=== PATIENT | male | born 1995 | race Caucasian/White ===

== ENCOUNTER 2018-03-09 07:23 | Emergency (ER) | payer MEDICAID ==
[2018-03-09] MEDS ORDERED: HALOPERIDOL LACT 5 MG/ML INJ IVP ONE (07:50)
[2018-03-09] MEDS ORDERED: ONDANSETRON 4 MG/2 ML VIAL IVP ONE (07:50)
--- NOTE | 2018-03-10 07:56 | EDPHY ---
H & P Stated Complaint: abd pain and vomiting Time Seen by Provider: 03/09/18 08:00 HPI/ROS: HISTORY OF PRESENT ILLNESS: The patient is a 22-year-old man who comes to the emergency depart with his mom complaining of nausea vomiting abdominal pain. He states that he has had the symptoms for 2 months. His mom states that they they began after he increased his cannabis use daily. States that he was at [facility] 1 month ago and had a negative workup. He has vomited 4 times this morning. No diarrhea. No fever. Also has a history of appendectomy. States that his symptoms are improving now but he feels dehydrated. REVIEW OF SYSTEMS: Constitutional: denies: chills, fever, recent illness, recent injury EENTM: denies: blurred vision, double vision, nose congestion Respiratory: denies: cough, shortness of breath Cardiac: denies: chest pain, irregular heart rate, lightheadedness, palpitations Gastrointestinal/Abdominal see HPI Genitourinary: denies: dysuria, frequency, hematuria, pain Musculoskeletal: denies: joint pain, muscle pain Skin: denies: lesions, rash, jaundice, bruising Neurological: denies: headache, numbness, paresthesia, tingling, dizziness, weakness Hematologic/Lymphatic: denies: blood clots, easy bleeding, easy bruising Immunologic/allergic: denies: HIV/AIDS, transplant EXAM: GENERAL: Well-appearing, well-nourished and in no acute distress. HEAD: Atraumatic, normocephalic. EYES: Pupils equal round and reactive to light, extraocular movements intact, sclera anicteric, conjunctiva are normal. ENT: TMs normal, nares patent, oropharynx clear without exudates. Moist mucous membranes. NECK: Normal range of motion, supple without lymphadenopathy or JVD. LUNGS: Breath sounds clear to auscultation bilaterally and equal. No wheezes rales or rhonchi. HEART: Regular rate and rhythm without murmurs, rubs or gallops. ABDOMEN: Soft, nontender, normoactive bowel sounds. No guarding, no rebound. No masses appreciated. BACK: No CVA tenderness, no spinal tenderness, step-offs or deformities EXTREMITIES: Normal range of motion, no pitting or edema. No clubbing or cyanosis. NEUROLOGICAL: Cranial nerves II through XII grossly intact. Normal speech, normal gait. 5/5 strength, normal movement in all extremities, normal sensation PSYCH: Normal mood, normal affect. SKIN: Warm, dry, normal turgor, no visible rashes or lesions. Source: Patient, Family Exam Limitations: No limitations - Medical/Surgical History Hx Asthma: No Hx Chronic Respiratory Disease: No Hx Diabetes: No Hx Cardiac Disease: No Hx Renal Disease: No Hx Cirrhosis: No Hx Alcoholism: No Hx HIV/AIDS: No Hx Splenectomy or Spleen Trauma: No Other PMH: Med hx-none. Surg-appy - Family History Significant Family History: No pertinent family hx - Social History Smoking Status: Never smoked Alcohol Use: Sober Drug Use: None Allergies/Adverse Reactions: No Known Allergies Allergy (Verified 08/27/15 13:32) Home Medications: Medication Instructions Recorded Azithromycin [Zithromax 250 mg 250 mg PO DAILY #6 tab 12/28/15 tab(RX)] Medical Decision Making ED Course/Re-evaluation: MDM: Patient's symptoms improved with fluids, Zofran and Haldol. His abdominal exam remains benign. Re-evaluated him multiple times during his stay. He is rehydrated. He is eager to go. I will give her prescription for Zofran and encouraged him to decrease his cannabis use. Lab work is reassuring. Discussed indications for returning. Differential Diagnosis: Partial list of the Differential diagnosis considered include but were not limited to; gastritis, cannabis hyperemesis, and although unlikely based on the history and physical exam, I also considered biliary disease, obstruction, ischemia, torsion, kidney stone, urinary tract infection. I discussed these differential diagnoses and the plan with the [patient] as well as the usual and expected course. The [patient understands] that the diagnosis is provisional and that in medicine we are not always correct and that further workup is often warranted. Usual and customary warnings were given. All of the [patient's] questions were answered. The [patient was] instructed to return to the emergency department should the symptoms at all worsen or return, otherwise to followup with the physician as we discussed. Departure - Departure Disposition: Home, Routine, Self-Care Clinical Impression: Dehydration, Cannabis abuse Nausea & vomiting Qualifiers: Vomiting type: unspecified Vomiting Intractability: non-intractable Qualified Code(s): R11.2 - Nausea with vomiting, unspecified Abdominal pain Qualifiers: Abdominal location: generalized Qualified Code(s): R10.84 - Generalized abdominal pain Condition: Fair Instructions: Acute Nausea and Vomiting (ED), Cannabis Abuse (ED) Referrals: NONE *PRIMARY CARE P,. [Primary Care Provider] - As per Instructions
== END 2018-03-09 09:02 | disposition home or self-care (01) ==
LOC: CED 07:23
DX: R11.2 Nausea with vomiting, unspecified (principal); E86.0 Dehydration; R10.84 Generalized abdominal pain; F12.10 Cannabis abuse, uncomplicated
CPT/HCPCS: 80053-PO; J1200; J1630; J2405

== ENCOUNTER 2018-03-09 20:15 | Emergency (ER) | payer MEDICAID ==
[2018-03-09 20:29] VITALS: BP 117/71
[2018-03-09] MEDS ORDERED: DIAZEPAM 5 MG TAB PO ONE (20:30)
--- NOTE | 2018-03-09 20:35 | EDPHY ---
H & P Time Seen by Provider: 03/09/18 20:17 HPI/ROS: This patient came in earlier today with vomiting at 7:30 a.m.. He also had some abdominal cramping. He was treated with IV Haldol and Zofran and reports that within a few minutes of having that Haldol he felt very anxious. He was treated with Benadryl but reported ongoing anxiety at home despite warm basilar naps. His brother brought him in for a recheck this evening with complaints of ongoing anxiety. Again he denies any anxiety prior to the Haldol dose 2.5 mg IV. ROS: Constitutional: No recent fevers HEENT: No recent URI symptoms or other complaints Neuro: No headache. No focal numbness tingling weakness Psychiatric: He denies depression or generalized anxiety prior to this morning. Pulmonary: No cough shortness of breath Cardiovascular: No lightheadedness or chest pain GI: No abdominal pain. Currently no nausea. : No symptoms Integumentary: No rash or pallor 10 point ROS is otherwise negative Past Medical/Surgical History: This morning as per HPI. Otherwise healthy Social History: Patient uses marijuana. He reports that this is daily use and that he started using a concentrator approximately a month or 2 ago. He denies any other drug use. He rarely uses alcohol. None recently. Smoking Status: Never smoked Physical Exam: General Appearance: Alert, no distress. Eyes: Pupils equal and round no pallor or injection. ENT, Mouth: Mucous membranes moist. Respiratory: There are no retractions, lungs are clear to auscultation. Cardiovascular: Regular rate and rhythm. Gastrointestinal: Hyperactive bowel sounds, soft, nontender Neurological: GCS 15 with no focal deficits. Skin: Warm and dry, no rashes. Musculoskeletal: Neck is supple nontender. Extremities are symmetrical, full range of motion. Psychiatric: Mood and affect currently seem normal with no pressured speech. No psychotic symptoms. Logical thought content. He reports anxiety but does not have agitated motor function. No suicidal ideation or homicidal ideation. DIFFERENTIAL DIAGNOSIS: After history and physical exam differential diagnosis was considered for neuroleptic related anxiety most likely, generalized anxiety , cannabinoid related anxiety, cannabinoid related hyperemesis syndrome. Constitutional: Initial Vital Signs Temperature (C) 36.5 C 03/09/18 20:15 Heart Rate 69 03/09/18 20:15 Respiratory Rate 16 03/09/18 20:15 Blood Pressure 117/71 03/09/18 20:15 O2 Sat (%) 98 03/09/18 20:15 O2 Delivery Mode Room Air Allergies/Adverse Reactions: No Known Allergies Allergy (Verified 08/27/15 13:32) Home Medications: Medication Instructions Recorded Azithromycin [Zithromax 250 mg 250 mg PO DAILY #6 tab 12/28/15 tab(RX)] MDM/Departure - [facility] ED Course/Re-evaluation: Valium p. O.. I counseled patient regarding cannabinoid hyperemesis syndrome encouraging him to have least windows of time that he uses no marijuana. Also counseled regarding anxiety and regarding potential neural optic related anxiety given timing immediately after the Haldol dose earlier which I think is likely cause of this patient's anxiety. He has no psychotic symptoms currently or other red flag findings. His belly exam is benign currently has no GI symptoms at the moment. - Depart Disposition: Home, Routine, Self-Care Clinical Impression: Neuroleptic associated Anxiety Condition: Good Instructions: Diazepam (By mouth), Anxiety (ED) Additional Instructions: Diagnosis: Anxiety Given the onset of fever anxiety shortly after receiving the Haldol medication earlier today, you likely have an intolerance of that medication or anxiety associated with that . Plan: Continue Benadryl 50 mg per 6 hr as needed. We gave you Valium 5 mg here in the emergency department this evening. Take another 5 mg in 6-8 hours if needed overnight for another dose or 2. After that your anxiety should be resolved in relation to the medication a received. Follow-up with primary care physician for any ongoing since. Since the cannabinoids are lipid soluble, marijuana will buildup in your system over time. Given this fact, consider stopping marijuana for appeared of time and then smoking less often to make vomiting episodes & anxiety less likely Return for any significant worsening despite the treatment plan Referrals: NONE *PRIMARY CARE P,. [Primary Care Provider] - As per Instructions Tyesha Lazo MD [Medical Doctor] - As per Instructions
[2018-03-09] MEDS ORDERED: DIAZEPAM 5 MG PREPACK#4 BTL TAKEHOME ONE (20:41)
== END 2018-03-09 20:53 | disposition home or self-care (01) ==
LOC: CED 20:15
DX: F41.8 Other specified anxiety disorders (principal)